=== PATIENT | female | born 1960 | race Caucasian/White ===

== ENCOUNTER 2023-12-14 14:31 | Outpatient (AMB) | payer OTHER, SELFPAY ==
--- NOTE | 2023-12-14 14:37 | A.OFFPC_ITS ---
Vital Signs 12/14/23 14:53 Height 5 ft 4.96 in Weight 200 lb 4 oz BMI 33.4 BP 110/52 L Blood Pressure Location Rt brachial Position Sitting Respiration 14 Pulse 64 Pulse Source Pulse Oximeter Temp 98.4 F Temp Source Oral Pulse Oximetry (%) 99 Oxygen Delivery Method Room Air Intake Visit Reasons: Est Care Intake Note: New patient visit Seaman Officer Required: No Medication List - Last Reconciled 12/14/23 by Tammy Joiner MD aspirin 325 mg PO DAILY atorvastatin 40 mg PO DAILY diazepam 2 mg PO BID dulaglutide (Trulicity) mg subcut fluticasone propionate 50 mcg/actuation sprays intranasal lisinopril 40 mg PO DAILY metoprolol tartrate 100 mg PO BID omeprazole 40 mg PO DAILY Tobacco use date assessed: 12/14/23 Dental Screening Did you have a dental visit in the last 12 months?: No Did you have a dental problem in the last 6 months where you did not have access to dental care?: No Was dental information given to patient?: Patient declined HPI HPI Comments History of Present Illness Details 62 year old female with a past medical h istory of htn, hld, diabetes, PSVT, PVD presenting for follow up Left shoulder pain at last visit. Diabetes: on victoza daily. last A1C 7.5%. Eye exam CV: Follows with PVC. On lisinopril, lopressor, imdue, lipitor. BP well controlled. Chronic shortness of breath and chest tightness with exertional-no interval increase in symptoms-stress test, echo cardiac cath. GERD: On PPI Continued fatigue Colonoscopy 2021 High risk breast ca 2/2 family history. Gets yearly mammograms and annual MRIs. ROS CONSTITUTIONAL: Denies weight loss, fever and chills. HEENT: Denies changes in vision and hearing. RESPIRATORY: Denies SOB and cough. CV: Denies palpitations and CP GI: Denies abdominal pain, nausea, vomiting and diarrhea. : Denies dysuria and urinary frequency. MSK: Denies new myalgia and joint pain. SKIN: Denies rash and pruritus. NEUROLOGICAL: Denies headache PSYCHIATRIC: Denies recent changes in mood. PHYSICAL EXAM: GENERAL: Alert and oriented x 3. NAD EYES: EOMI. Anicteric. HENT: Moist mucous membranes. No scleral icterus. No cervical lymphadenopathy. LUNGS: Clear to auscultation bilaterally. CARDIOVASCULAR: Regular rate and rhythm. No murmur. No JVD. ABDOMEN: Soft, non-tender +bs EXTREMITIES: No edema. Non-tender. SKIN: No rashes or lesions. Warm. NEUROLOGIC: No focal neurological deficits. CN II-XII grossly intact PSYCHIATRIC: Cooperative. Appropriate mood and affect [facility] Medical History (Updated 12/16/23 @ 14:48 by Tammy Joiner MD) Laceration of right hand Migraine Leg pain GERD (gastroesophageal reflux disease) Factor V deficiency Dyslipidemia Carpal tunnel syndrome Surgical History (Updated 12/14/23 @ 14:41 by Vera Lerner CMA) Hx of cholecystectomy H/O tubal ligation H/O colonoscopy Family History (Updated 12/14/23 @ 14:59 by Vera Lerner CMA) Brother FH: mental illness Coronary artery disease Diabetes mellitus Hypercholesteremia Stroke Mother Stroke Diabetes mellitus HTN (hypertension) Hypercholesteremia Heart disease Father Coronary artery disease Heart attack Heart disease Hypercholesteremia HTN (hypertension) Sister Breast cancer Heart disease Hypercholesteremia Diabetes mellitus Social History (Updated 12/14/23 @ 14:51 by Vera Lerner CMA) Housing: House Patient Tobacco Use Status: Former Tobacco user Cigarette Packs Per Day: 2 Years Smoked: 2, quit 45 years ago e-Cigarette/Vaping Use: Never Used Second Hand Smoke Exposure: Yes service: Yes Current occupational status: employed 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 How often do you have a drink containing alcohol?: Monthly or less (6 times a year ) 2. How many drinks containing alcohol do you have on a typical day when you are drinking?: 1 or 2 Total Score: 1 Physical exam (Primary Care) Vital Signs: Last Vital Signs Temp 98.4 F 12/14/23 14:53 Pulse 64 12/14/23 14:53 Resp 14 12/14/23 14:53 BP 110/52 L 12/14/23 14:53 Pulse Ox 99 12/14/23 14:53 Oxygen Delivery Method Room Air 12/14/23 14:53 BMI result Body Mass Index 33.4 Tobacco/Smoking Status: Tobacco use Status Tobacco use date assessed 12/14/23 12/14/23 15:00 Patient Tobacco Use Status Former Tobacco user 12/14/23 15:00 e-Cigarette/Vaping Use Never Used 12/14/23 15:00 Assessment and Plan Assessment & Plan (1) Type 2 diabetes mellitus: Code(s): E11.9 - Type 2 diabetes mellitus without complications Qualifiers: Diabetes mellitus penitentiary insulin use: without adjunct faculty for medical terminology use Diabetes mellitus complication status: with hyperglycemia Qualified Code(s): E11.65 - Type 2 diabetes mellitus with hyperglycemia Plan: with hyperglycemia elevated [id number] with labs in 3 months to guide medication changes (2) Dyslipidemia: Code(s): E78.5 - Hyperlipidemia, unspecified Plan: LDL goal <70. 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 Panel 12/15/23 E11.9 - Type 2 diabetes mellitus without complications Hemoglobin A1c 12/15/23 E11.9 - Type 2 diabetes mellitus without complications MR breast BI wo/w con 12/14/23 E11.9 - Type 2 diabetes mellitus without complications, Z80.3 - Family history of malignant neoplasm of breast Hemoglobin A1c 12/15/23 E11.9 - Type 2 diabetes mellitus without complications Comprehensive Met. Panel 12/15/23 E11.9 - Type 2 diabetes mellitus without complications Complete Blood Count Auto Diff 12/15/23 E11.9 - Type 2 diabetes mellitus without complications Lipid Panel 12/15/23 E11.9 - Type 2 diabetes mellitus without complications Medications: New trazodone 50 mg PO BEDTIME PRN 90 tabs 3RF sleep diazepam 2 mg PO BID 20 tabs 0RF prednisone 40 mg (2 x 20 mg) PO DAILY 10 tabs 0RF dulaglutide (Trulicity) 1.5 mg (0.5 mL) subcut QWEEK 12 weeks 6 mL 3RF Coding Level of Care Code Est Pt Level 4 (02483) Complex EM visit Add On G2211 Diagnoses Type 2 diabetes mellitus with hyperglycemia, without long-term current use of insulin E11.65 Diabetes mellitus adjunct faculty for medical terminology insulin use: without adjunct faculty for medical terminology use Diabetes mellitus complication status: with hyperglycemia Dyslipidemia E78.5 Factor V deficiency D68.2 Gastroesophageal reflux disease, unspecified whether esophagitis present K21.9 Esophagitis presence: esophagitis presence not specified
[2023-12-14 14:53] VITALS: BP 110/52; PULSE 64; RESP 14; TEMP 36.9; O2SAT 99; BMI 33.4
== END 2023-12-14 15:32 | disposition home or self-care (01) ==
PROVIDERS: PCP Internal Medicine; Visit Provider Internal Medicine
DX: E11.65 Type 2 diabetes mellitus with hyperglycemia (principal); E78.5 Hyperlipidemia, unspecified; D68.2 Hereditary deficiency of other clotting factors; K21.9 Gastro-esophageal reflux disease without esophagitis
CPT/HCPCS: 99214; G2211

== ENCOUNTER 2023-12-15 08:01 | Outpatient (REF) | payer OTHER, SELFPAY ==
[2023-12-15 11:28] LABS: MANUAL DIFF FLAG NO
[2023-12-15 11:32] LABS: Basophils Percent Auto 0.6 % (0-2); Eosinophils Absolute Auto 0.3 X10*3/uL (0.0-0.4); Hematocrit 37.7 % (37.0-47.0); Hemoglobin 12.6 g/dl (12.0-16.0); Imm Gran Abs Auto 0.03 X10*3/uL (0.00-0.03); Imm Gran Pct Auto 0.4 % (0.0-0.4); Lymphocytes Absolute Auto 1.6 X10*3/uL (1.2-4.9); Lymphocytes Percent Auto 22.3 % (20-40); Mean Corpuscular HGB Conc 33.4 g/dl (31.0-35.0); Mean Corpuscular Hemoglobin 29.9 pg (27.0-33.0); Mean Corpuscular Volume 89.3 fL (80.0-98.0); Mean Platelet Volume 10.8 fL (9.4-12.3); Monocytes Absolute Auto 0.7 X10*3/uL (0.1-1.2); Neutrophils Absolute Auto 4.6 x10*3/uL (2.0-8.3); Neutrophils Percent Auto 63.7 % (45-73); Platelet Count 275 X10*3/uL (160-400); Red Blood Count 4.22 X10*6/uL (4.20-5.50); Red Cell Distribution Width 12.9 % (11.0-16.0); White Blood Count 7.2 X10*3/uL (4.8-10.8)
[2023-12-15 11:38] LABS: Estimated Average Glucose 186 mg/dL; Hemoglobin A1c % 8.1 % (<6.0)
[2023-12-15 12:07] LABS: Alanine Aminotransferase 24 U/L (0-31); Alkaline Phosphatase 105 U/L (39-117); Anion Gap 11 (12-20); Aspartate Amino Transferase 17 U/L (5-31); Bilirubin Total 0.4 mg/dL (0.0-1.0); Blood Urea Nitrogen 17 mg/dL (9-16); Carbon Dioxide 27 mmol/L (22-29); Chloride 105 mmol/L (96-108); Cholesterol 172 mg/dL (<200); Estimated Glomerular Filt Rate 58; Glucose Random 152 mg/dL (60-115); HDL Cholesterol 31 mg/dL (>40); Potassium 4.3 mmol/L (3.3-5.1); Sodium 139 mmol/L (135-145); Total Protein 7.2 g/dL (6.5-8.0); Triglycerides 429 mg/dL (<150)
== END 2023-12-15 08:02 | disposition home or self-care (01) ==
LOC: HO.WFDLDS 08:01
PROVIDERS: Visit Provider Internal Medicine
DX: E11.9 Type 2 diabetes mellitus without complications (principal)
CPT/HCPCS: 36415; 80053; 80061; 83036; 85025

== ENCOUNTER 2024-01-05 08:35 | Outpatient (REF) | payer OTHER, SELFPAY | END 2024-01-05 08:36 | disposition home or self-care (01) | LOC: HO.MAMMO 08:35 | PROVIDERS: PCP Internal Medicine; Visit Provider Internal Medicine | DX: Z13.89 Encounter for screening for other disorder (principal) ==

== ENCOUNTER 2024-03-17 08:57 | Outpatient (AMB) | payer OTHER, SELFPAY ==
--- NOTE | 2024-03-17 09:05 | MHC.PC.OV ---
Vital Signs 03/17/24 09:10 Weight 196 lb 4 oz BP 130/56 L Blood Pressure Location Lt brachial Position Sitting Respiration 12 Pulse 67 Pulse Source Pulse Oximeter Pulse Oximetry (%) 96 Oxygen Delivery Method Room Air Intake Visit Reasons: dm Intake Note: Patient is here to follow up for diabetic care. Assistant Curator Required: No Allergies No Known Allergies Allergy (Verified 03/17/24 09:19) Tobacco use date assessed: 12/14/23 Dental Screening Dental Screen Date: 03/17/24 Did you have a dental visit in the last 12 months?: Yes Was dental information given to patient?: Patient has dentist HPI HPI Comments History of Present Illness Details 63 year old female with a past medical history of htn, hld, diabetes, PSVT, PVD presenting for follow up Diabetes: on trulicity 1.5mg weekly previously on victoza daily. POC A1C today 8.2%, last 8.1%-the GLP was switched after last visit. Eye exam UTD. Has started a lower carbohydrate diet. CV: Follows with PVC. On lisinopril, lopressor, imdue, lipitor. BP well controlled. Chronic shortness of breath and chest tightness with exertional-no interval increase in symptoms-stress test, echo cardiac cath. GERD: On PPI Colonoscopy 2021 High risk breast ca 2/2 family history. Gets yearly mammograms and annual MRIs. ROS CONSTITUTIONAL: Denies weight loss, fever and chills. HEENT: Denies changes in vision and hearing. RESPIRATORY: Denies SOB and cough. CV: Denies palpitations and CP GI: Denies abdominal pain, nausea, vomiting and diarrhea. : Denies dysuria and urinary frequency. MSK: Denies new myalgia and joint pain. SKIN: Denies rash and pruritus. NEUROLOGICAL: Denies headache PSYCHIATRIC: Denies recent changes in mood. PHYSICAL EXAM: GENERAL: Alert and oriented x 3. NAD EYES: EOMI. Anicteric. HENT: Moist mucous membranes. No scleral icterus. No cervical lymphadenopathy. LUNGS: Clear to auscultation bilaterally. CARDIOVASCULAR: Regular rate and rhythm. No murmur. No JVD. ABDOMEN: Soft, non-tender +bs EXTREMITIES: No edema. Non-tender. SKIN: No rashes or lesions. Warm. NEUROLOGIC: No focal neurological deficits. CN II-XII grossly intact PSYCHIATRIC: Cooperative. Appropriate mood and affect [facility] Medical History (Updated 12/16/23 @ 14:48 by Tammy Joiner MD) Laceration of right hand Migraine Leg pain GERD (gastroesophageal reflux disease) Factor V deficiency Dyslipidemia Carpal tunnel syndrome Surgical History (Updated 12/14/23 @ 14:41 by Vera Lerner CMA) Hx of cholecystectomy H/O tubal ligation H/O colonoscopy Family History (Updated 12/14/23 @ 14:59 by Vera Lerner CMA) Brother FH: mental illness Coronary artery disease Diabetes mellitus Hypercholesteremia Stroke Mother Stroke Diabetes mellitus HTN (hypertension) Hypercholesteremia Heart disease Father Coronary artery disease Heart attack Heart disease Hypercholesteremia HTN (hypertension) Sister Breast cancer Heart disease Hypercholesteremia Diabetes mellitus Social History (Updated 12/14/23 @ 14:51 by Vera Lerner CMA) Housing: House Patient Tobacco Use Status: Former Tobacco user Cigarette Packs Per Day: 2 Years Smoked: 2, quit 45 years ago e-Cigarette/Vaping Use: Never Used Second Hand Smoke Exposure: Yes service: Yes Current occupational status: employed 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 1. Little interest or pleasure in doing things: not at all 2. Feeling down, depressed, or hopeless: not at all 3. Trouble falling or staying asleep, or sleeping too much: not at all 4. Feeling tired or having little energy: not at all 5. Poor appetite or overeating: not at all 6. Feeling bad about yourself - or that you are a failure or have let yourself or your family down: not at all 7. Trouble concentrating on things, such as reading the newspaper or watching television: not at all 8. Moving or speaking so slowly that other people could have noticed. Or the opposite - being so fidgety or restless that you have been moving around a lot more than usual: not at all 9. Thoughts that you would be better off or of hurting yourself in some way: not at all Total score: 0 Depression Screening Interpretation: Negative (neg) Depression Screening Done: Yes 23617 - PHQ-9 Billing: Yes Source: Developed by Drs. Immanuel Mims, Kasie Elam, Jaison Padron and colleagues, with an educational justin from [employer]. Thrive Questionnaire Date Thrive assessed: 03/17/24 I am a: Patient What is your living situation today?: I have a steady place to live Within the past 12 months, did the food you bought not last and you didn't have the money to get more?: Never true Within the past 12 months, did you worry whether your food would run out before you got money to buy more?: Never true Do you have trouble paying for medicines?: No Do you have trouble getting transportation to medical appointments?: No Do you have trouble paying your heating and electricity bill?: No Do you have trouble taking care of your child, family member or friend?: No Do you have trouble with day-to-day activities such as bathing, preparing meals, shopping, managing finances, etc.?: No Are you currently unemployed and looking for a job?: No Are you interested in more education?: I choose not to answer this question Please select the resources that you would like help with: None Currently or been in a relationship where the following occur: No concerns reported THRIVE Score: 0 AUDIT C Alcohol Use Questionnaire (AUDIT-C) 1. How often do you have a drink containing alcohol?: Monthly or less 2. How many drinks containing alcohol do you have on a typical day when you are drinking?: 1 or 2 3. How often do you have six or more drinks on one occasion?: Never Total Score: 1 NAEEM-7 AMB Questionnaire NAEEM-7 Date NAEEM - 7 assessed: 03/17/24 Feeling nervous, anxious, or on edge: 0 = Not at all Not being able to stop or control worryin = Not at all Worrying too much about different things: 0 = Not at all Trouble relaxin = Not at all Being so restless that it is hard to sit still: 0 = Not at all Becoming easily annoyed or irritable: 0 = Not at all Feeling afraid as if something awful might happen: 0 = Not at all Total NAEEM-7 score (0-4 normal; 5-9 mild; 10-14 moderate; 15-21 severe): 0 Source: Developed by Drs. Immanuel Mims, Kasie Elam, Jaison Padron and colleagues, with an educational justin from [employer] NAEEM-7 Assessment Billing NAEEM-7 Assessment Tool: NAEEM-7 Assessment 08295 Physical exam (Primary Care) Vital Signs: Last Vital Signs Pulse 67 03/17/24 09:10 Resp 12 03/17/24 09:10 BP 130/56 L 03/17/24 09:10 Pulse Ox 96 03/17/24 09:10 Oxygen Delivery Method Room Air 03/17/24 09:10 Tobacco/Smoking Status: Tobacco use Status Tobacco use date assessed 12/14/23 03/17/24 09:05 Patient Tobacco Use Status Former Tobacco user 03/17/24 09:05 e-Cigarette/Vaping Use Never Used 03/17/24 09:05 PHQ-9: PHQ-9 Score PHQ-9: Total score 0 03/17/24 09:29 Depression Screening Interpretation: Negative (neg) Thrive Assessment: Date of Thrive Assessment Date Thrive assessed 03/17/24 03/17/24 09:05 Currently or been in a relationship where the following occur: No concerns reported Results AMB Hemoglobin A1c AMB Hemoglobin A1c 8.2 % Last Edit by Ramona Hill CMA on 03/17/24 09:33 Results Reviewed Results Reviewed: Laboratory Last Values Hgb A1c (Clinic) 8.2 % (4.0-6.0) H 03/17/24 09:05 Assessment and Plan Assessment & Plan (1) Type 2 diabetes mellitus: Code(s): E11.9 - Type 2 diabetes mellitus without complications Qualifiers: Diabetes mellitus residential insulin use: without equipment operator intermodal yard use Diabetes mellitus complication status: with hyperglycemia Qualified Code(s): E11.65 - Type 2 diabetes mellitus with hyperglycemia Plan: Uncontrolled Start Actos 30mg daily Continue trulicity-she declined dose increase Annual eye exams (2) Dyslipidemia: Code(s): E78.5 - Hyperlipidemia, unspecified Plan: goal LDL <100 (3) GERD (gastroesophageal reflux disease): Code(s): K21.9 - Gastro-esophageal reflux disease without esophagitis Qualifiers: Esophagitis presence: esophagitis presence not specified Qualified Code(s): K21.9 - Gastro-esophageal reflux disease without esophagitis Plan: continue PPI Orders: Orders Lipid Panel Today E11.65 - Type 2 diabetes mellitus with hyperglycemia Comprehensive Met. Panel Today E11.65 - Type 2 diabetes mellitus with hyperglycemia AMB Hemoglobin A1c Today E11.9 - Type 2 diabetes mellitus without complications Hemoglobin A1c Today E11.65 - Type 2 diabetes mellitus with hyperglycemia Microalbumin, Random (w Creat) Today E11.65 - Type 2 diabetes mellitus with hyperglycemia Medications: New pioglitazone 30 mg PO DAILY 90 tabs 3RF Discontinued Paxlovid 300 mg (150 mg x 2)-100 mg (nirmatrelvir-ritonavir) Discontinued Reason: Doctor's Order take TWO 150 mg tablets of nirmatrelvir with ONE 100 mg tablet of ritonavir twice daily for 5 days PO 30 ea 0RF NS Coding Level of Care Code Est Pt Level 4 (19925) Diagnoses Type 2 diabetes mellitus with hyperglycemia, without long-term current use of insulin E11.65 Diabetes mellitus residential insulin use: without equipment operator intermodal yard use Diabetes mellitus complication status: with hyperglycemia Dyslipidemia E78.5 Gastroesophageal reflux disease, unspecified whether esophagitis present K21.9 Esophagitis presence: esophagitis presence not specified Additional Codes NAEEM-7 Assessment Billing - NAEEM-7 Assessment Tool: NAEEM-7 Assessment [id number] ([id number])
[2024-03-17 09:10] VITALS: BP 130/56; PULSE 67; RESP 12; O2SAT 96
== END 2024-03-17 09:44 | disposition home or self-care (01) ==
PROVIDERS: PCP Internal Medicine; Visit Provider Internal Medicine
DX: E11.65 Type 2 diabetes mellitus with hyperglycemia (principal); E78.5 Hyperlipidemia, unspecified; K21.9 Gastro-esophageal reflux disease without esophagitis; E11.9 Type 2 diabetes mellitus without complications

== ENCOUNTER 2024-03-17 08:57 | Outpatient (REF) | payer OTHER, SELFPAY | END 2024-03-17 08:58 | disposition home or self-care (01) | LOC: HO.LAB 08:57 | PROVIDERS: PCP Internal Medicine; Visit Provider Internal Medicine | DX: E11.65 Type 2 diabetes mellitus with hyperglycemia (principal); E78.5 Hyperlipidemia, unspecified; K21.9 Gastro-esophageal reflux disease without esophagitis | CPT/HCPCS: 83036; 96127; 99212 ==

== ENCOUNTER 2024-06-19 08:40 | Outpatient (AMB) | payer OTHER, SELFPAY ==
--- OUTSIDE RECORDS SUMMARY | 2024-06-19 08:42 | XMS_ITS | Continuity of Care Document ---
Author Name [facility] Organization [facility] Care Team Providers Care Molding Machine Tender Name Role Phone [facility] Unavailable Unavailable Social History Combined list of available smoking, tobacco, and other social history from Department of Defense and Veterans Affairs facilities. Social History Type Response Date Comment Sourc e This section is an empty social history section. [facility]
--- NOTE | 2024-06-19 08:59 | A.OFFPC_ITS ---
Intake Visit Reasons: dm Intake Note: Follow up diabetes Personnel Clerks Supervisor Required: No Allergies No Known Allergies Allergy (Verified 06/19/24 09:00) Tobacco use date assessed: 12/14/23 Dental Screening Dental Screen Date: 03/17/24 HPI HPI Comments History of Present Illness Details 64 year old female with a past medical h istory of htn, hld, diabetes, PSVT, PVD presenting for follow up Diabetes: on trulicity 1.5mg weekly, Actos was added at last visit. Previously on victoza daily. POC A1C today 7.0% from 8.2%, 8.1%-the GLP was switched after last visit. Eye exam UTD. Has started a lower carbohydrate diet. CV: Follows with PVC. On lisinopril, lopressor, imdue, lipitor. BP well controlled. Chronic shortness of breath and chest tightness with exertional-no interval increase in symptoms-stress test, echo cardiac cath. GERD: On PPI Colonoscopy 2021 High risk breast ca 2/2 family history. Gets yearly mammograms and annual MRIs. ROS CONSTITUTIONAL: Denies weight loss, fever and chills. HEENT: Denies changes in vision and hearing. RESPIRATORY: Denies SOB and cough. CV: Denies palpitations and CP GI: Denies abdominal pain, nausea, vomiting and diarrhea. : Denies dysuria and urinary frequency. MSK: Denies new myalgia and joint pain. SKIN: Denies rash and pruritus. NEUROLOGICAL: Denies headache PSYCHIATRIC: Denies recent changes in mood. PHYSICAL EXAM: GENERAL: Alert and oriented x 3. NAD EYES: EOMI. Anicteric. HENT: Moist mucous membranes. No scleral icterus. No cervical lymphadenopathy. LUNGS: Clear to auscultation bilaterally. CARDIOVASCULAR: Regular rate and rhythm. No murmur. No JVD. ABDOMEN: Soft, non-tender +bs EXTREMITIES: No edema. Non-tender. SKIN: No rashes or lesions. Warm. NEUROLOGIC: No focal neurological deficits. CN II-XII grossly intact PSYCHIATRIC: Cooperative. Appropriate mood and affect [facility] Medical History Laceration of right hand Migraine Leg pain GERD (gastroesophageal reflux disease) Factor V deficiency Dyslipidemia Carpal tunnel syndrome Surgical History Hx of cholecystectomy H/O tubal ligation H/O colonoscopy Family History Brother FH: mental illness Coronary artery disease Diabetes mellitus Hypercholesteremia Stroke Mother Stroke Diabetes mellitus HTN (hypertension) Hypercholesteremia Heart disease Father Coronary artery disease Heart attack Heart disease Hypercholesteremia HTN (hypertension) Sister Breast cancer Heart disease Hypercholesteremia Diabetes mellitus Social History Housing: House Alcohol intake: current Patient Tobacco Use Status: Former Tobacco user Cigarette Packs Per Day: 2 Years Smoked: 2, quit 45 years ago e-Cigarette/Vaping Use: Never Used Second Hand Smoke Exposure: Yes service: Yes Current occupational status: employed 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 Current occupational exposures/hazards: No Cognitive needs: No Hearing needs: No Vision needs: Yes (glasses) Questionnaire Thrive Questionnaire Date Thrive assessed: 03/17/24 I am a: Patient What is your living situation today?: I have a steady place to live Within the past 12 months, did the food you bought not last and you didn't have the money to get more?: Never true Within the past 12 months, did you worry whether your food would run out before you got money to buy more?: Never true Do you have trouble paying for medicines?: No Do you have trouble getting transportation to medical appointments?: No Do you have trouble paying your heating and electricity bill?: No Do you have trouble taking care of your child, family member or friend?: No Do you have trouble with day-to-day activities such as bathing, preparing meals, shopping, managing finances, etc.?: No Are you currently unemployed and looking for a job?: No Are you interested in more education?: I choose not to answer this question Please select the resources that you would like help with: None Currently or been in a relationship where the following occur: No concerns reported THRIVE Score: 0 NAEEM-7 AMB Questionnaire NAEEM-7 Date NAEEM - 7 assessed: 03/17/24 Source: Developed by Drs. Immanuel Mims, Kasie Elam, Jaison Padron and colleagues, with an educational justin from [employer]. Physical exam (Primary Care) Tobacco/Smoking Status: Tobacco use Status Tobacco use date assessed 12/14/23 06/19/24 09:05 Patient Tobacco Use Status Former Tobacco user 06/19/24 09:26 e-Cigarette/Vaping Use Never Used 06/19/24 09:26 Thrive Assessment: Date of Thrive Assessment Date Thrive assessed 03/17/24 06/19/24 09:05 Currently or been in a relationship where the following occur: No concerns reported Results AMB Hemoglobin A1c AMB Hemoglobin A1c 7.0 % Last Edit by Vera Lerner CMA on 06/19/24 09:25 Results Reviewed Results Reviewed: Laboratory Last Values Hgb A1c (Clinic) 7.0 % (4.0-6.0) H 06/19/24 09:24 Coding Level of Care Code Est Pt Level 4 (42684) Diagnoses Type 2 diabetes mellitus with hyperglycemia, without long-term current use of insulin E11.65 Diabetes mellitus emt intermediate insulin use: without halfway use Diabetes mellitus complication status: with hyperglycemia Assessment & Plan Assessment & Plan (1) Type 2 diabetes mellitus: Code(s): E11.9 - Type 2 diabetes mellitus without complications Category: Medical Qualifiers: Diabetes mellitus halfway insulin use: without halfway use Diabetes mellitus complication status: with hyperglycemia Qualified Code(s): E11.65 - Type 2 diabetes mellitus with hyperglycemia Plan: Controlled on current medication regimen which she will continue. Orders: Orders AMB Hemoglobin A1c Today E11.65 - Type 2 diabetes mellitus with hyperglycemia
== END 2024-06-19 09:41 | disposition home or self-care (01) ==
PROVIDERS: PCP Internal Medicine; Visit Provider Internal Medicine
DX: E11.65 Type 2 diabetes mellitus with hyperglycemia (principal)

== ENCOUNTER → 2024-06-19 08:40 | Outpatient (BNVA) | payer OTHER, SELFPAY | PROVIDERS: PCP Internal Medicine; Visit Provider Internal Medicine | DX: E11.65 Type 2 diabetes mellitus with hyperglycemia (principal); Z79.85 Long-term (current) use of injectable non-insulin antidiabetic drugs; Z79.84 Long term (current) use of oral hypoglycemic drugs | CPT/HCPCS: 83036; 99212 ==

== ENCOUNTER 2024-09-01 08:33 | Outpatient (REF) | payer OTHER, SELFPAY ==
--- OUTSIDE RECORDS SUMMARY | 2024-09-01 09:03 | XMS_ITS | Continuity of Care Document ---
Author Name [facility] Organization [facility] Care Team Providers Care Material Checker Name Role Phone [facility] Unavailable Unavailable Social History Combined list of available smoking, tobacco, and other social history from Department of Defense and Veterans Affairs facilities. Social History Type Response Date Comment Sourc e This section is an empty social history section. [facility]
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
== END 2024-09-01 08:34 | disposition home or self-care (01) ==
LOC: HO.MAMMO 08:33
PROVIDERS: PCP Internal Medicine; Visit Provider Internal Medicine
DX: Z12.31 Encounter for screening mammogram for malignant neoplasm of breast (principal)
CPT/HCPCS: 77063; 77067

== ENCOUNTER → 2024-09-01 08:45 | Outpatient (BNV) | payer OTHER, SELFPAY | PROVIDERS: PCP Internal Medicine; Visit Provider Internal Medicine | DX: Z12.31 Encounter for screening mammogram for malignant neoplasm of breast (principal) | CPT/HCPCS: 77063; 77067 ==

== ENCOUNTER 2024-09-18 08:46 | Outpatient (AMB) | payer OTHER, SELFPAY ==
--- NOTE | 2024-09-18 08:53 | MHC.PC.OV ---
Vital Signs 09/18/24 08:55 Height 5 ft 4.96 in Weight 211 lb 6 oz BMI 35.2 BP 136/74 Blood Pressure Location Lt brachial Position Sitting Respiration 14 Pulse 68 Pulse Source Pulse Oximeter Pulse Oximetry (%) 97 Oxygen Delivery Method Room Air Intake Visit Reasons: DM follow up Intake Note: Diabetes follow up Shelter Monitor Required: No Allergies No Known Allergies Allergy (Verified 09/18/24 08:54) Tobacco use date assessed: 09/18/24 Fall risk assessment: No Falls in past year Last assessed Fall Risk: 09/18/24 Dental Screening Dental Screen Date: 03/17/24 HPI HPI Comments History of Present Illness Details 64 year old female with a past medical history of htn, hld, diabetes, PSVT, PVD presenting for follow up Diabetes: on trulicity 1.5mg weekly, actos. Previously on victoza daily. POC A1C today 7.1 from 7.0% from 8.2%.Eye exam UTD. Has started a lower carbohydrate diet. CV: Follows with PVC. On lisinopril, lopressor, imdue, lipitor. BP well controlled-136/74. Chronic shortness of breath and chest tightness with exertional-no interval increase in symptoms-stress test, echo cardiac cath. GERD: On PPI Colonoscopy 2021 High risk breast ca 2/2 family history. Gets yearly mammograms and annual MRIs. ROS CONSTITUTIONAL: Denies weight loss, fever and chills. HEENT: Denies changes in vision and hearing. RESPIRATORY: Denies SOB and cough. CV: Denies palpitations and CP GI: Denies abdominal pain, nausea, vomiting and diarrhea. : Denies dysuria and urinary frequency. MSK: Denies new myalgia and joint pain. SKIN: Denies rash and pruritus. NEUROLOGICAL: Denies headache PSYCHIATRIC: Denies recent changes in mood. PHYSICAL EXAM: GENERAL: Alert and oriented x 3. NAD EYES: EOMI. Anicteric. HENT: Moist mucous membranes. No scleral icterus. No cervical lymphadenopathy. LUNGS: Clear to auscultation bilaterally. CARDIOVASCULAR: Regular rate and rhythm. No murmur. No JVD. ABDOMEN: Soft, non-tender +bs EXTREMITIES: No edema. Non-tender. SKIN: No rashes or lesions. Warm. NEUROLOGIC: No focal neurological deficits. CN II-XII grossly intact PSYCHIATRIC: Cooperative. Appropriate mood and affect [facility] Medical History Laceration of right hand Migraine Leg pain GERD (gastroesophageal reflux disease) Factor V deficiency Dyslipidemia Carpal tunnel syndrome Surgical History Hx of cholecystectomy H/O tubal ligation H/O colonoscopy Family History Brother FH: mental illness Coronary artery disease Diabetes mellitus Hypercholesteremia Stroke Mother Stroke Diabetes mellitus HTN (hypertension) Hypercholesteremia Heart disease Father Coronary artery disease Heart attack Heart disease Hypercholesteremia HTN (hypertension) Sister Breast cancer Heart disease Hypercholesteremia Diabetes mellitus Social History Housing: House Alcohol intake: current Patient Tobacco Use Status: Former Tobacco user Cigarette Packs Per Day: 2 Years Smoked: 2, quit 45 years ago e-Cigarette/Vaping Use: Never Used Second Hand Smoke Exposure: Yes service: Yes Current occupational status: employed 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 1. Little interest or pleasure in doing things: not at all 2. Feeling down, depressed, or hopeless: not at all 3. Trouble falling or staying asleep, or sleeping too much: several days 4. Feeling tired or having little energy: several days 5. Poor appetite or overeating: several days 6. Feeling bad about yourself - or that you are a failure or have let yourself or your family down: not at all 7. Trouble concentrating on things, such as reading the newspaper or watching television: not at all 8. Moving or speaking so slowly that other people could have noticed. Or the opposite - being so fidgety or restless that you have been moving around a lot more than usual: not at all 9. Thoughts that you would be better off or of hurting yourself in some way: not at all Total score: 3 Depression Screening Interpretation: Negative Depression Screening Done: Yes 61180 - PHQ-9 Billing: Yes Source: Developed by Drs. Immanuel Mims, Kasie Elam, Jaison Padron and colleagues, with an educational justin from [employer]. Thrive Questionnaire Date Thrive assessed: 09/11/24 I am a: Patient What is your living situation today?: I have a steady place to live Within the past 12 months, did the food you bought not last and you didn't have the money to get more?: Never true Within the past 12 months, did you worry whether your food would run out before you got money to buy more?: Never true Do you have trouble paying for medicines?: No Do you have trouble getting transportation to medical appointments?: No Do you have trouble paying your heating and electricity bill?: No Do you have trouble taking care of your child, family member or friend?: No Do you have trouble with day-to-day activities such as bathing, preparing meals, shopping, managing finances, etc.?: No Are you currently unemployed and looking for a job?: No Are you interested in more education?: No Please select the resources that you would like help with: None Currently or been in a relationship where the following occur: No concerns reported THRIVE Score: 0 AUDIT C Alcohol Use Questionnaire (AUDIT-C) 1. How often do you have a drink containing alcohol?: Monthly or less 2. How many drinks containing alcohol do you have on a typical day when you are drinking?: 1 or 2 3. How often do you have six or more drinks on one occasion?: Never Total Score: 1 NAEEM-7 AMB Questionnaire NAEEM-7 Date NAEEM - 7 assessed: 03/17/24 Feeling nervous, anxious, or on edge: 0 = Not at all Not being able to stop or control worryin = Not at all Worrying too much about different things: 0 = Not at all Trouble relaxin = Not at all Being so restless that it is hard to sit still: 0 = Not at all Becoming easily annoyed or irritable: 0 = Not at all Feeling afraid as if something awful might happen: 0 = Not at all Total NAEEM-7 score (0-4 normal; 5-9 mild; 10-14 moderate; 15-21 severe): 0 Source: Developed by Drs. Immanuel Mims, Kasie Elam, Jaison Padron and colleagues, with an educational justin from [employer]. Physical exam (Primary Care) Vital Signs: Last Vital Signs Pulse 68 09/18/24 08:55 Resp 14 09/18/24 08:55 BP 136/74 09/18/24 08:55 Pulse Ox 97 09/18/24 08:55 Oxygen Delivery Method Room Air 09/18/24 08:55 BMI result Body Mass Index 35.2 Tobacco/Smoking Status: Tobacco use Status Tobacco use date assessed 09/18/24 09/18/24 09:02 Patient Tobacco Use Status Former Tobacco user 09/18/24 09:02 e-Cigarette/Vaping Use Never Used 09/18/24 09:02 PHQ-9: PHQ-9 Score PHQ-9: Total score 3 09/18/24 09:06 Depression Screening Interpretation: Negative Thrive Assessment: Date of Thrive Assessment Date Thrive assessed 09/11/24 09/18/24 09:02 Currently or been in a relationship where the following occur: No concerns reported Results AMB Hemoglobin A1c AMB Hemoglobin A1c 7.1 % Last Edit by Vera Lerner CMA on 09/18/24 09:12 Results Reviewed Results Reviewed: Laboratory Last Values Hgb A1c (Clinic) 7.1 % (4.0-6.0) H 09/18/24 09:11 Coding Level of Care Code Est Pt Level 4 (90314) Diagnoses Type 2 diabetes mellitus with hyperglycemia, without long-term current use of insulin E11.65 Diabetes mellitus termite treater insulin use: without detention use Diabetes mellitus complication status: with hyperglycemia Primary hypertension I10 Hypertension type: primary hypertension Additional Codes PHQ-9 - 89662 - PHQ-9 Billing: Yes ([id number]) Assessment & Plan Assessment & Plan (1) Type 2 diabetes mellitus: Code(s): E11.9 - Type 2 diabetes mellitus without complications Category: Medical Qualifiers: Diabetes mellitus termite treater insulin use: without termite treater use Diabetes mellitus complication status: with hyperglycemia Qualified Code(s): E11.65 - Type 2 diabetes mellitus with hyperglycemia (2) Hypertension: Code(s): I10 - Essential (primary) hypertension Category: Medical Qualifiers: Hypertension type: primary hypertension Qualified Code(s): I10 - Essential (primary) hypertension Plan Hypertension-controlled on current medication DM2-close to goal. Increase trulicity to 3mg weekly. return in 4 months or sooner as needed Orders: Orders AMB Hemoglobin A1c Today E11.65 - Type 2 diabetes mellitus with hyperglycemia Medications: New Trulicity (dulaglutide) 3 mg (0.5 mL) subcut QWEEK 2 mL 0RF NS Discontinued dulaglutide (Trulicity) Discontinued Reason: Doctor's Order 1.5 mg (0.5 mL) subcut QWEEK 12 weeks 6 mL 3RF
[2024-09-18 08:55] VITALS: BP 136/74; PULSE 68; RESP 14; O2SAT 97; BMI 35.2
== END 2024-09-18 09:19 | disposition home or self-care (01) ==
LOC: HO.HMCFM 08:47
PROVIDERS: PCP Internal Medicine; Visit Provider Internal Medicine
DX: E11.65 Type 2 diabetes mellitus with hyperglycemia (principal); I10 Essential (primary) hypertension

== ENCOUNTER → 2024-09-18 08:46 | Outpatient (BNVA) | payer OTHER, SELFPAY | PROVIDERS: PCP Internal Medicine; Visit Provider Internal Medicine | DX: E11.65 Type 2 diabetes mellitus with hyperglycemia (principal); I10 Essential (primary) hypertension; I73.9 Peripheral vascular disease, unspecified; Z87.891 Personal history of nicotine dependence; Z79.899 Other long term (current) drug therapy | CPT/HCPCS: 83036; 96127; 99212 ==

== ENCOUNTER 2025-01-22 08:43 | Outpatient (AMB) | payer OTHER, SELFPAY ==
--- NOTE | 2025-01-22 08:58 | A.OFFPC_ITS ---
Vital Signs 01/22/25 09:02 Height 5 ft 4.9 in Weight 212 lb 6 oz BMI 35.4 BP 110/72 Blood Pressure Location Rt brachial Position Sitting Respiration 12 Pulse 76 Pulse Source Pulse Oximeter Pulse Oximetry (%) 96 Oxygen Delivery Method Room Air Intake Visit Reasons: DM follow up Intake Note: Diabetes follow up Solar Installation Helper Required: No Allergies No Known Allergies Allergy (Verified 01/22/25 09:01) Tobacco use date assessed: 01/22/25 Fall risk assessment: No Falls in past year Last assessed Fall Risk: 01/22/25 Dental Screening Dental Screen Date: 01/22/25 Did you have a dental visit in the last 12 months?: Yes Did you have a dental problem in the last 6 months where you did not have access to dental care?: No Was dental information given to patient?: Patient has dentist HPI HPI Comments History of Present Illness Details 64 year old female with a past medical h istory of hypertension, hyperlipidemia, diabetes, PSVT, PVD presenting for follow up Diabetes: increased trulicity 3mg weekly, actos. Previously on victoza daily. POC A1C today 6.7 from 7.1 from 7.0% from 8.2%. Eye exam UTD. Has started a lower carbohydrate diet. CV: Follows with PVC. On lisinopril, lopressor, imdur, lipitor. BP well controlled-110/72. Chronic shortness of breath and chest tightness with exertional-no interval increase in symptoms-has had stress test, echo cardiac cath. GERD: On PPI Colonoscopy 2021 High risk breast ca 2/2 family history. Gets yearly mammograms and sometimes MRI ROS CONSTITUTIONAL: Denies weight loss, fever and chills. HEENT: Denies changes in vision and hearing. RESPIRATORY: Denies SOB and cough. CV: Denies palpitations and CP GI: Denies abdominal pain, nausea, vomiting and diarrhea. : Denies dysuria and urinary frequency. MSK: Denies new myalgia and joint pain. SKIN: Denies rash and pruritus. NEUROLOGICAL: Denies headache PSYCHIATRIC: Denies recent changes in mood. PHYSICAL EXAM: GENERAL: Alert and oriented x 3. NAD EYES: EOMI. Anicteric. HENT: Moist mucous membranes. No scleral icterus. No cervical lymphadenopathy. LUNGS: Clear to auscultation bilaterally. CARDIOVASCULAR: Regular rate and rhythm. No murmur. No JVD. ABDOMEN: Soft, non-tender +bs EXTREMITIES: No edema. Non-tender. SKIN: No rashes or lesions. Warm. NEUROLOGIC: No focal neurological deficits. CN II-XII grossly intact PSYCHIATRIC: Cooperative. Appropriate mood and affect COUNTS INCLUDE 234 BEDS AT THE [facility] Medical History Laceration of right hand Migraine Leg pain GERD (gastroesophageal reflux disease) Factor V deficiency Dyslipidemia Carpal tunnel syndrome Surgical History Hx of cholecystectomy H/O tubal ligation H/O colonoscopy Family History Brother FH: mental illness Coronary artery disease Diabetes mellitus Hypercholesteremia Stroke Mother Stroke Diabetes mellitus HTN (hypertension) Hypercholesteremia Heart disease Father Coronary artery disease Heart attack Heart disease Hypercholesteremia HTN (hypertension) Sister Breast cancer Heart disease Hypercholesteremia Diabetes mellitus Social History Housing: House Alcohol intake: current Patient Tobacco Use Status: Former Tobacco user Cigarette Packs Per Day: 2 Years Smoked: 2, quit 45 years ago e-Cigarette/Vaping Use: Never Used Second Hand Smoke Exposure: Yes service: Yes Current occupational status: employed 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 Current occupational exposures/hazards: No Cognitive needs: No Hearing needs: No Vision needs: Yes (glasses) Questionnaire Thrive Questionnaire Date Thrive assessed: 09/11/24 I am a: Patient What is your living situation today?: I have a steady place to live Within the past 12 months, did the food you bought not last and you didn't have the money to get more?: Never true Within the past 12 months, did you worry whether your food would run out before you got money to buy more?: Never true Do you have trouble paying for medicines?: No Do you have trouble getting transportation to medical appointments?: No Do you have trouble paying your heating and electricity bill?: No Do you have trouble taking care of your child, family member or friend?: No Do you have trouble with day-to-day activities such as bathing, preparing meals, shopping, managing finances, etc.?: No Are you currently unemployed and looking for a job?: No Are you interested in more education?: No Please select the resources that you would like help with: None Currently or been in a relationship where the following occur: No concerns reported THRIVE Score: 0 NAEEM-7 AMB Questionnaire NAEEM-7 Date NAEEM - 7 assessed: 03/17/24 Source: Developed by Drs. Immanuel Mims, Kasie Elam, Jaison Padron and colleagues, with an educational justin from [employer]. Physical exam (Primary Care) Vital Signs: Last Vital Signs Pulse 76 01/22/25 09:02 Resp 12 01/22/25 09:02 BP 110/72 01/22/25 09:02 Pulse Ox 96 01/22/25 09:02 Oxygen Delivery Method Room Air 01/22/25 09:02 BMI result Body Mass Index 35.4 Tobacco/Smoking Status: Tobacco use Status Tobacco use date assessed 01/22/25 01/22/25 09:07 Patient Tobacco Use Status Former Tobacco user 01/22/25 08:59 e-Cigarette/Vaping Use Never Used 01/22/25 08:59 Thrive Assessment: Date of Thrive Assessment Date Thrive assessed 09/11/24 01/22/25 08:59 Currently or been in a relationship where the following occur: No concerns reported Results AMB Hemoglobin A1c AMB Hemoglobin A1c 6.7 % Last Edit by Vera Lerner CMA on 01/22/25 09:17 Results Reviewed Results Reviewed: Laboratory Last Values Hgb A1c (Clinic) 6.7 % (4.0-6.0) H 01/22/25 09:16 Coding Level of Care Code Est Pt Level 4 (22903) Complex EM visit Add On G2211 Diagnoses Primary hypertension I10 Hypertension type: primary hypertension Dyslipidemia E78.5 Type 2 diabetes mellitus with hyperglycemia, without long-term current use of insulin E11.65 Diabetes mellitus business support liaison insulin use: without group home use Diabetes mellitus complication status: with hyperglycemia Factor V deficiency D68.2 Gastroesophageal reflux disease, unspecified whether esophagitis present K21.9 Esophagitis presence: esophagitis presence not specified Assessment & Plan Assessment & Plan (1) Hypertension: Code(s): I10 - Essential (primary) hypertension Category: Medical Qualifiers: Hypertension type: primary hypertension Qualified Code(s): I10 - Essential (primary) hypertension (2) Dyslipidemia: Code(s): E78.5 - Hyperlipidemia, unspecified Category: Medical (3) Type 2 diabetes mellitus: Code(s): E11.9 - Type 2 diabetes mellitus without complications Category: Medical Qualifiers: Diabetes mellitus business support liaison insulin use: without business support liaison use Diabetes mellitus complication status: with hyperglycemia Qualified Code(s): E11.65 - Type 2 diabetes mellitus with hyperglycemia (4) Factor V deficiency: Code(s): D68.2 - Hereditary deficiency of other clotting factors Category: Medical (5) GERD (gastroesophageal reflux disease): Code(s): K21.9 - Gastro-esophageal reflux disease without esophagitis Category: Medical Qualifiers: Esophagitis presence: esophagitis presence not specified Qualified Code(s): K21.9 - Gastro-esophageal reflux disease without esophagitis Plan 64 year old female for follow up DM is now well controlled on current regimen. congratulated. continued efforts at dietary and lifestyle changes Blood pressure is well controlled GERD-controlled on PPI Orders: Orders AMB Hemoglobin A1c Today E11.65 - Type 2 diabetes mellitus with hyperglycemia
[2025-01-22 09:02] VITALS: BP 110/72; PULSE 76; RESP 12; O2SAT 96; BMI 35.4
--- OUTSIDE RECORDS SUMMARY | 2025-01-22 09:10 | XMS_ITS | Continuity of Care Document ---
Author Name [facility] Organization [facility] Care Team Providers Care Director Of Sales Marketing Name Role Phone [facility] Unavailable Unavailable Social History Combined list of available smoking, tobacco, and other social history from Department of Defense and Veterans Affairs facilities. Social History Type Response Date Comment Sourc e This section is an empty social history section. [facility]
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
== END 2025-01-22 09:38 | disposition home or self-care (01) ==
LOC: HO.HMCFM 08:44
PROVIDERS: PCP Internal Medicine; Visit Provider Internal Medicine
DX: Z23 Encounter for immunization (principal)

== ENCOUNTER → 2025-01-22 08:43 | Outpatient (BNVA) | payer OTHER, SELFPAY | PROVIDERS: PCP Internal Medicine; Visit Provider Internal Medicine | DX: I10 Essential (primary) hypertension (principal); Z23 Encounter for immunization; E78.5 Hyperlipidemia, unspecified; E11.65 Type 2 diabetes mellitus with hyperglycemia; D68.2 Hereditary deficiency of other clotting factors; K21.9 Gastro-esophageal reflux disease without esophagitis | CPT/HCPCS: 83036; 90471; 90715; 99212 ==

== ENCOUNTER 2025-04-24 13:24 | Outpatient (AMB) | payer OTHER, SELFPAY ==
--- NOTE | 2025-04-24 13:29 | A.OFFPC_ITS ---
Vital Signs 04/24/25 13:33 Height 5 ft 4.9 in Weight 213 lb 8 oz BMI 35.6 BP 120/64 Blood Pressure Location Rt brachial Position Sitting Respiration 14 Pulse 73 Pulse Source Pulse Oximeter Pulse Oximetry (%) 99 Oxygen Delivery Method Room Air Intake Visit Reasons: DM Intake Note: Diabetes follow up. Fractured foot 02/03/2025 Washer Blanket Required: No Allergies No Known Allergies Allergy (Verified 04/24/25 13:32) Tobacco use date assessed: 01/22/25 Dental Screening Dental Screen Date: 01/22/25 HPI HPI Comments History of Present Illness Details 65 year old female with a past medical h istory of hypertension, hyperlipidemia, diabetes, PSVT, PVD presenting for follow up Diabetes: Continues trulicity 3mg weekly, actos. Previously on victoza daily. POC A1C today 7.0% from 6.7 from 7.1 from 7.0% from 8.2%. Eye exam UTD. Has started a lower carbohydrate diet but has not lost any weight CV: Follows with PVC. On lisinopril, lopressor, imdur, lipitor. BP well controlled. Chronic shortness of breath and chest tightness with exertional-no interval increase in symptoms-has had stress test, echo cardiac cath. GERD: On PPI In January twisted her right metatarsal-saw ortho. Was just cleared by orthopedics Colonoscopy 2021 High risk breast ca 2/2 family history. Gets yearly mammograms and sometimes MRI ROS CONSTITUTIONAL: Denies weight loss, fever and chills. HEENT: Denies changes in vision and hearing. RESPIRATORY: Denies SOB and cough. CV: Denies palpitations and CP GI: Denies abdominal pain, nausea, vomiting and diarrhea. : Denies dysuria and urinary frequency. MSK: Denies new myalgia and joint pain. SKIN: Denies rash and pruritus. NEUROLOGICAL: Denies headache PSYCHIATRIC: Denies recent changes in mood. PHYSICAL EXAM: GENERAL: Alert and oriented x 3. NAD EYES: EOMI. Anicteric. HENT: Moist mucous membranes. No scleral icterus. No cervical lymphadenopathy. LUNGS: Clear to auscultation bilaterally. CARDIOVASCULAR: Regular rate and rhythm. No murmur. No JVD. ABDOMEN: Soft, non-tender +bs EXTREMITIES: No edema. Non-tender. SKIN: No rashes or lesions. Warm. NEUROLOGIC: No focal neurological deficits. CN II-XII grossly intact PSYCHIATRIC: Cooperative. Appropriate mood and affect [facility] Medical History Laceration of right hand Migraine Leg pain GERD (gastroesophageal reflux disease) Factor V deficiency Dyslipidemia Carpal tunnel syndrome Surgical History Hx of cholecystectomy H/O tubal ligation H/O colonoscopy Family History Brother FH: mental illness Coronary artery disease Diabetes mellitus Hypercholesteremia Stroke Mother Stroke Diabetes mellitus HTN (hypertension) Hypercholesteremia Heart disease Father Coronary artery disease Heart attack Heart disease Hypercholesteremia HTN (hypertension) Sister Breast cancer Heart disease Hypercholesteremia Diabetes mellitus Social History Housing: House Alcohol intake: current Patient Tobacco Use Status: Former Tobacco user Cigarette Packs Per Day: 2 Years Smoked: 2, quit 45 years ago e-Cigarette/Vaping Use: Never Used Second Hand Smoke Exposure: Yes service: Yes Current occupational status: employed 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 Current occupational exposures/hazards: No Cognitive needs: No Hearing needs: No Vision needs: Yes (glasses) Questionnaire Thrive Questionnaire Date Thrive assessed: 09/11/24 I am a: Patient What is your living situation today?: I have a steady place to live Within the past 12 months, did the food you bought not last and you didn't have the money to get more?: Never true Within the past 12 months, did you worry whether your food would run out before you got money to buy more?: Never true Do you have trouble paying for medicines?: No Do you have trouble getting transportation to medical appointments?: No Do you have trouble paying your heating and electricity bill?: No Do you have trouble taking care of your child, family member or friend?: No Do you have trouble with day-to-day activities such as bathing, preparing meals, shopping, managing finances, etc.?: No Are you currently unemployed and looking for a job?: No Are you interested in more education?: No Please select the resources that you would like help with: None Currently or been in a relationship where the following occur: No concerns reported THRIVE Score: 0 AUDIT C Alcohol Use Questionnaire (AUDIT-C) 1. How often do you have a drink containing alcohol?: Monthly or less 2. How many drinks containing alcohol do you have on a typical day when you are drinking?: 1 or 2 3. How often do you have six or more drinks on one occasion?: Never Total Score: 1 NAEEM-7 AMB Questionnaire NAEEM-7 Date NAEEM - 7 assessed: 03/17/24 Source: Developed by Drs. Immanuel Mism, Kasie Elam, Jaison Padron and colleagues, with an educational justin from [employer]. Physical exam (Primary Care) Vital Signs: Last Vital Signs Pulse 73 04/24/25 13:33 Resp 14 04/24/25 13:33 BP 120/64 04/24/25 13:33 Pulse Ox 99 04/24/25 13:33 Oxygen Delivery Method Room Air 04/24/25 13:33 BMI result Body Mass Index 35.6 Tobacco/Smoking Status: Tobacco use Status Tobacco use date assessed 01/22/25 04/24/25 13:31 Patient Tobacco Use Status Former Tobacco user 04/24/25 13:31 e-Cigarette/Vaping Use Never Used 04/24/25 13:31 Thrive Assessment: Date of Thrive Assessment Date Thrive assessed 09/11/24 04/24/25 13:31 Currently or been in a relationship where the following occur: No concerns reported Results AMB Hemoglobin A1c AMB Hemoglobin A1c 7.0 % Last Edit by Vera Lerner CMA on 04/24/25 13:44 Results Reviewed Results Reviewed: Laboratory Last Values Hgb A1c (Clinic) 7.0 % (4.0-6.0) H 04/24/25 13:40 Coding Level of Care Code Est Pt Level 4 (17480) Complex EM visit Add On G2211 Diagnoses Type 2 diabetes mellitus with hyperglycemia, without long-term current use of i nsulin E11.65 Diabetes mellitus exterminator helper termite insulin use: without halfway use Diabetes mellitus complication status: with hyperglycemia Primary hypertension I10 Hypertension type: primary hypertension Dyslipidemia E78.5 Factor V deficiency D68.2 Assessment & Plan Assessment & Plan (1) Type 2 diabetes mellitus: Code(s): E11.9 - Type 2 diabetes mellitus without complications Category: Medical Qualifiers: Diabetes mellitus exterminator helper termite insulin use: without exterminator helper termite use Diabetes mellitus complication status: with hyperglycemia Qualified Code(s): E11.65 - Type 2 diabetes mellitus with hyperglycemia (2) Hypertension: Code(s): I10 - Essential (primary) hypertension Category: Medical Qualifiers: Hypertension type: primary hypertension Qualified Code(s): I10 - Essential (primary) hypertension (3) Dyslipidemia: Code(s): E78.5 - Hyperlipidemia, unspecified Category: Medical (4) Factor V deficiency: Code(s): D68.2 - Hereditary deficiency of other clotting factors Category: Medical Plan 65 year old for diabetic follow up Controlled but borderline. would like to switch trulicity to mounjaro for improved control. Continue actos CV-blood pressure is well controlled GERD is stable on PPI Labs and follow up 4 months Orders: Orders Lipid Panel 4 Months E11.65 - Type 2 diabetes mellitus with hyperglycemia Hemoglobin A1c 4 Months E11.65 - Type 2 diabetes mellitus with hyperglycemia AMB Hemoglobin A1c 04/24/25 E11.65 - Type 2 diabetes mellitus with hyperglycemia Complete Blood Count Auto Diff 4 Months E11.65 - Type 2 diabetes mellitus with hyperglycemia Comprehensive Met. Panel 4 Months E11.65 - Type 2 diabetes mellitus with hyperglycemia Microalbumin, Random (w Creat) 4 Months E11.65 - Type 2 diabetes mellitus with hyperglycemia Medications: New tirzepatide (Mounjaro) 5 mg (0.5 mL) subcut QWEEK 6 mL 3RF
[2025-04-24 13:33] VITALS: BP 120/64; PULSE 73; RESP 14; O2SAT 99; BMI 35.6
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
== END 2025-04-24 14:21 | disposition home or self-care (01) ==
LOC: HO.HMCFM 13:25
PROVIDERS: PCP Internal Medicine; Visit Provider Internal Medicine
DX: E11.65 Type 2 diabetes mellitus with hyperglycemia (principal); I10 Essential (primary) hypertension; E78.5 Hyperlipidemia, unspecified; D68.2 Hereditary deficiency of other clotting factors

== ENCOUNTER → 2025-04-24 13:24 | Outpatient (BNVA) | payer OTHER, SELFPAY | PROVIDERS: PCP Internal Medicine; Visit Provider Internal Medicine | DX: E11.65 Type 2 diabetes mellitus with hyperglycemia (principal); I10 Essential (primary) hypertension; E78.5 Hyperlipidemia, unspecified; D68.2 Hereditary deficiency of other clotting factors; K21.9 Gastro-esophageal reflux disease without esophagitis; Z79.85 Long-term (current) use of injectable non-insulin antidiabetic drugs; Z79.899 Other long term (current) drug therapy | CPT/HCPCS: 83036; 99212 ==